=== PATIENT | female | born 1955 | race African-American/Black ===

== ENCOUNTER 2017-03-13 09:57 | Emergency (ER) | payer BC ==
[~2017-03-13] VITALS: Ht 172.7 cm; Wt 74.0 kg
[2017-03-13 09:58] VITALS: BP 169/80; PULSE 85; RESP 20; TEMP 98.4; O2SAT 98
== END 2017-03-13 11:04 | disposition left against medical advice (07) ==
LOC: NED 09:57
DX: Z04.9 Encounter for examination and observation for unspecified reason (principal)
CPT/HCPCS: 99281